=== PATIENT | female | born 1960 | race African-American/Black ===

== ENCOUNTER 2017-08-18 19:12 | Emergency (ER) | payer OTHER ==
[~2017-08-18] VITALS: Ht 175.3 cm; Wt 66.7 kg
[~2017-08-18 19:12] MED LIST: ADVAIR 250/501 DISK IH; ASTELIN; LITHIUM CARBON150 MG PO; OXYCODONE-APAP1 EACH PO; PROVENTIL,2.5 MG/3 M IH
[2017-08-18 21:44] LABS: APPEARANCE CLEAR ((CLEAR)); BILIRUBIN NEGATIVE; BLOOD NEGATIVE; COLOR YELLOW ((YELLOW)); GLUCOSE (STRIP) NEGATIVE; KETONES NEGATIVE; LEUKOCYTES NEGATIVE; NITRITE NEGATIVE; PROTEIN (STRIP) NEGATIVE; SPECIFIC GRAVITY 1.025 (1.000-1.030); UROBILINOGEN 0.2 MG/DL (0.2-1.0)
[2017-08-18] MEDS ORDERED: FIORICET 50-301 EAC1 PO (22:15)
[2017-08-18] MEDS ORDERED: REGLAN10 MG PO (22:15)
[2017-08-18] MEDS ORDERED: MOTRIN800 MG PO (22:15)
[2017-08-18 22:31] VITALS: BP 148/68
== END 2017-08-18 22:33 | disposition home or self-care (01) ==
LOC: EME 19:12
PROVIDERS: Physician Assistant
DX: G43.009 Migraine without aura, not intractable, without status migrainosus (principal); E86.0 Dehydration; J45.909 Unspecified asthma, uncomplicated; F32.9 Major depressive disorder, single episode, unspecified; F31.9 Bipolar disorder, unspecified; F17.200 Nicotine dependence, unspecified, uncomplicated; Z88.6 Allergy status to analgesic agent
CPT/HCPCS: 81003; 99281; 99284; J1885

== ENCOUNTER 2017-08-26 01:11 | Observation (INO) | payer OTHER ==
[~2017-08-26] VITALS: Ht 165.1 cm; Wt 65.0 kg
[~2017-08-26 01:11] MED LIST changes: +FIORICET 50-301 EAC1 PO; +MOTRIN800 MG PO; +REGLAN10 MG PO
[2017-08-26 01:43] LABS: HEMATOCRIT 39.5 % (36.0-46.0); HEMOGLOBIN 13.1 G/DL (11.9-15.5); MCH 31.7 PG (29.0-34.0); MCHC 33.2 G/DL (30.0-36.0); MCV 95.6 FL (83-99); PLATELET COUNT 166 K/uL (156-360); RBC DIS.WIDTH-CV 12.8 % (11.8-14.6); RBC DIS.WIDTH-SD 44.7 % (39-53); RED BLOOD COUNT 4.13 M/uL (3.80-5.20); WHITE BLOOD COUNT 5.2 K/uL (4.1-10.2)
[2017-08-26 01:56] LABS: CHLORIDE 107 mEq/L (99-109); SODIUM 141 mEq/L (136-147)
[2017-08-26 01:58] LABS: GLUCOSE 137 mg/dL (70-99)
[2017-08-26 02:02] LABS: CREATININE 1.5 mg/dL (0.6-1.3); GFR ESTIMATE (CALCULATED) 47 mL/min/
[2017-08-26 02:03] LABS: UREA NITROGEN (BUN) 22 mg/dL (9-23)
[2017-08-26 02:05] LABS: TROP-I INTERPRETATION NEGATIVE; TROPONIN-I < 0.01 ng/mL (0.0-0.30)
[2017-08-26 04:06] LABS: D-DIMER ELISA < 150.00 ng/mLDDU (<230)
[2017-08-26 04:23] LABS: ALBUMIN 4.2 g/dL (3.2-4.8)
[2017-08-26 04:26] LABS: TOTAL PROTEIN 7.3 g/dL (6.4-8.3)
[2017-08-26 04:27] LABS: TOTAL BILIRUBIN 0.4 mg/dL (0.0-1.0)
[2017-08-26 04:28] LABS: ALKALINE PHOSPHATASE 67 IU/L (3-129)
[2017-08-26 04:31] LABS: AST (GOT) 26 IU/L (2-34); DIRECT BILIRUBIN 0.2 mg/dL (0.0-0.3)
[2017-08-26 04:32] LABS: ALT (GPT) 18 IU/L (3-49); CREATINE KINASE 198 IU/L (1-294); LIPASE 43 U/L (1.0-51.0)
[2017-08-26 08:12] LABS: TROP-I INTERPRETATION NEGATIVE; TROPONIN-I < 0.01 ng/mL (0.0-0.30)
[2017-08-26] MEDS ORDERED: ASTELIN BOTH NARES (08:35)
[2017-08-26] MEDS ORDERED: COMPLERA TABLE1 EACH PO (08:35)
[2017-08-26] MEDS ORDERED: LIDEX 0.05% CRE60 GM TP (08:36)
[2017-08-26] MEDS ORDERED: TRAMADOL HCL50 MG PO (08:37)
[2017-08-26] MEDS ORDERED: TIZANIDINE HCL2 MG PO (08:38)
[2017-08-26 12:04] VITALS: BP 138/74
[2017-08-26 13:43] LABS: TROP-I INTERPRETATION NEGATIVE; TROPONIN-I < 0.01 ng/mL (0.0-0.30)
[2017-08-26 19:12] VITALS: BP 125/80
[2017-08-26 23:34] VITALS: BP 157/88
[2017-08-27 04:28] VITALS: BP 137/77
[2017-08-27 07:36] VITALS: BP 144/80
[2017-08-27 10:54] VITALS: BP 148/96
[2017-08-27] MEDS ORDERED: TRAMADOL HCL50 MG PO (12:27)
== END 2017-08-27 14:08 | disposition home or self-care (01) ==
LOC: EME 01:11 → EDOF 05:08 → 5WEST 05:08 → EDOF 05:08 → ENRESERV 05:11 → 5WEST 11:59
PROVIDERS: Hospitalist; Internal Medicine
DX: R07.9 Chest pain, unspecified (principal); J45.909 Unspecified asthma, uncomplicated; B20 Human immunodeficiency virus [HIV] disease; F17.200 Nicotine dependence, unspecified, uncomplicated; N17.9 Acute kidney failure, unspecified; G89.29 Other chronic pain; Z83.3 Family history of diabetes mellitus; Z82.49 Family history of ischemic heart disease and other diseases of the circulatory system; Z82.5 Family history of asthma and other chronic lower respiratory diseases; Z88.6 Allergy status to analgesic agent; Z91.018 Allergy to other foods
CPT/HCPCS: 71046; 80048; 80076; 80178; 82550; 83690; 84484; 85027; 85379; 93005; 93306; 94640; 94640 76; 99202; 99281; 99285; G0378; J1644; J2270; J7030